=== PATIENT | male | born 1975 | race Caucasian/White ===

== ENCOUNTER 2017-09-12 12:18 | Emergency (ER) | payer OTHER ==
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
[2017-09-12 13:24] VITALS: BP 121/74
== END 2017-09-12 13:22 | disposition home or self-care (01) ==
LOC: CED 12:18
DX: S22.31XA Fracture of one rib, right side, initial encounter for closed fracture (principal); S43.401A Unspecified sprain of right shoulder joint, initial encounter; V17.4XXA Pedal cycle driver injured in collision with fixed or stationary object in traffic accident, initial encounter; Y92.410 Unspecified street and highway as the place of occurrence of the external cause; Y99.8 Other external cause status; Y93.55 Activity, bike riding
CPT/HCPCS: 71046-PO; 73030-PO